=== PATIENT | male | born 1965 | race Caucasian/White ===

== ENCOUNTER 2016-10-12 16:34 | Emergency (ER) | payer OTHER ==
[~2016-10-12] VITALS: Ht 180.3 cm; Wt 67.0 kg
[~2016-10-12 16:34] MED LIST: ACYC200C4 PO; ALBUTEROL INH; AMOX-291 PO; DIPH25CA61 PO; LENA25CA PO; ONDA4TAB7 PO; TEMA30CA PO; TRAM50TA2 PO
[2016-10-12] MEDS ORDERED: MECLIZINE CHEWABLE 25 MG TAB PO ONE (18:30)
[2016-10-12] MEDS ORDERED: MECLIZINE CHEWABLE 25 MG TAB ONE (18:32)
[2016-10-12] MEDS ORDERED: SODIUM CHLORIDE FLUSH 10ML SYR IVF ONE (19:00)
[2016-10-12] MEDS ORDERED: SODIUM CHLORIDE 0.9% 1,000ML IVBOLUS ONE (19:00)
[2016-10-12 19:10] LABS: ASPARTATE AMINO TRANSFERASE 12 U/L (15-37); BLOOD UREA NITROGEN 9 mg/dL (7-18)
[2016-10-12] MEDS ORDERED: OMNIPAQUE 350 MG/ML, 100ML BOTTLE ONE (20:27)
[2016-10-12 21:35] VITALS: BP 101/62
== END 2016-10-12 21:38 | disposition home or self-care (01) ==
LOC: ED 18:51
DX: R42 Dizziness and giddiness (principal); J44.9 Chronic obstructive pulmonary disease, unspecified; I10 Essential (primary) hypertension; R10.11 Right upper quadrant pain
CPT/HCPCS: 36415; 71260; 74177; 80053; 81003; 83690; 85025; 93005; 96360; 96361; 99285; J7030; Q9967

== ENCOUNTER 2016-10-30 13:18 | Emergency (ER) | payer OTHER ==
[~2016-10-30] VITALS: Ht 180.3 cm; Wt 65.5 kg
[2016-10-30 13:24] VITALS: BP 103/74
== END 2016-10-30 14:45 | disposition left against medical advice (07) ==
LOC: ED 14:42
DX: G89.29 Other chronic pain (principal); R10.84 Generalized abdominal pain; R63.0 Anorexia; I10 Essential (primary) hypertension; J44.9 Chronic obstructive pulmonary disease, unspecified
CPT/HCPCS: 99281

== ENCOUNTER → 2017-01-15 | Outpatient (CLI) | payer OTHER | END | disposition home or self-care (01) | LOC: PETCFH 08:23 | PROVIDERS: ATTEND Internal Medicine Gastroenterology | DX: R63.4 Abnormal weight loss (principal); K59.00 Constipation, unspecified | CPT/HCPCS: 74000; 78264; A9541 ==

== ENCOUNTER → 2017-01-20 | Outpatient (CLI) | payer OTHER | END | disposition home or self-care (01) | LOC: RAD 15:27 | PROVIDERS: ATTEND Internal Medicine Gastroenterology | DX: R63.4 Abnormal weight loss (principal) | CPT/HCPCS: 74000 ==